=== PATIENT | female | born 1950 | race Caucasian/White ===

== ENCOUNTER 2019-08-26 18:13 | Inpatient (IN) | payer OTHER ==
[~2019-08-26] VITALS: Ht 162.6 cm; Wt 96.2 kg
[~2019-08-26 18:13] MED LIST: ASPIRIN325 PO; BENICAR HCT 201 EACH PO; CHANTIX1 EACH PO; CRANBERRY200 MG PO; FISH OIL 1,001000 M2 PO; LOPRESSOR25 PO; LOVASTATIN 20 M20 MG PO; MOBIC7.5 MG PO; NITROGLYCERIN0.4 MG SUBLING; STOOL SOFTENER100 MG PO; TOPAMAX50 MG PO; VENTOLIN HFA 1818 GM INH
[2019-08-26 21:33] VITALS: BP 137/70
[2019-08-26] MEDS ORDERED: ASA81BEC PO (22:16)
[2019-08-26] MEDS ORDERED: FOLIC ACID0.8 MG PO (22:19)
[2019-08-26] MEDS ORDERED: NEURONTIN100 MG PO (22:20)
[2019-08-26] MEDS ORDERED: ZANAFLEX2 M1 PO (22:21)
[2019-08-27] VITALS (15 sets, daily range): BP systolic 97–135; BP diastolic 44–63
--- NOTE | 2019-08-27 04:19 | NUR ---
PT WAS A DIRECT ADMIT FROM [facility]. PT IS STABLE UPON ARRIVAL TO THE FLOOR VIA EMS. NO SIGN OF DISTRESS NOTED. NURSE PRACTITIONER NOTIFIED UPON ARRIVAL. ADMISSION EDUCATION AND ASSESSMENT COMPLETED. FAMILY AT BEDSIDE. PATIENT DENIES ANY PAIN. PT IS PLACED ON 2.5 L NC OF O2. CONTINUE TO MONITOR PATIENT. PT IS SEEN BY TELEMARKETING MANAGER. DENIES ANY FURTHER NEEDS AT THIS TIME.
[2019-08-27 06:36] LABS: HEMATOCRIT 35.3 % (37.0-47.0); HEMOGLOBIN 11.4 gm/dL (12.0-15.0); MCH 29.4 pg (26.0-34.0); MCHC 32.2 g/dL (28.0-37.0); MCV 91.1 fL (80.0-100.0); RBC 3.88 mil/uL (4.20-5.00); RDW 16.5 % (10.5-14.5); WBC 5.3 thou/uL (4.0-11.0)
[2019-08-27 06:50] LABS: ANION GAP 8 mmol/L (7-16); BUN 21 mg/dL (7-18); CALCIUM 9.5 mg/dL (8.5-10.1); CHLORIDE 102 mmol/L (98-107); CO2 31 mmol/L (21-32); CREATININE 1.2 mg/dL (0.6-1.0); GLUCOSE 120 mg/dL (74-106); POTASSIUM 3.7 mmol/L (3.5-5.1); SODIUM 141 mmol/L (136-145); TROPONIN-I <0.06 ng/mL (<0.06)
--- NOTE | 2019-08-27 14:26 | 2DMMODE ---
[address] [address] 2 D/M-MODE ECHOCARDIOGRAM Name: WASHINGTONMORRIS E Room #: 200-I ADM IN ..#: [id number] Admission: 08/26/19 Attend Phys: Jeri Payne, Discharge: Date of : 46 Report #: [id number] THIS REPORT FOR: //name// APPROVED REPORT Study performed: 08/27/2019 11:52:45 EXAM: Comprehensive 2D, Doppler, and color-flow Echocardiogram Room #: 200 Status: routine BSA: 2.04 HR: 88 bpm Rhythm: NSR Other Information Study Quality: Fair Risk Factors: Cardiac Risk Factors: HTN, Hyperlipidemia, Smoking, SOB Indications Dyspnea Left Ventricle The left ventricle is normal size. Regional wall motion is not well visualized but grossly normal. Mild concentric left ventricular hypertrophy. The left ventricular systolic function is normal. The left ventricular ejection fraction is within the normal range. LVEF is 65%. Right Ventricle The right ventricle is normal size. Atria The left atrium size is normal. Aortic Valve The aortic valve is normal in structure. No aortic regurgitation is present. There is no aortic valvular stenosis. Mitral Valve The mitral valve is normal in structure. There is no mitral valve regurgitation noted. [address] [address] 2 D/M-MODE ECHOCARDIOGRAM Name: MORRIS WASHINGTON Room #: 200-I ADM IN .R.#: [id number] Admission: 08/26/19 Attend Phys: Jeri Payne, Discharge: Date of : 46 Report #: [id number] Pericardium Large circumferential pericardial effusion with echocardiographic and Doppler indices to suggest tamponade physiology. Critical Notification Critical Value: Yes <Conclusion> Limited study The left ventricular systolic function is normal. Regional wall motion is not well visualized but grossly normal. LVEF is 65%. The aortic valve is normal in structure. The mitral valve is normal in structure. Large circumferential pericardial effusion with echocardiographic and Doppler indices to suggest tamponade physiology. <ELECTRONICALLY SIGNED> By: Chris Lopez MD, [facility] 08/27/19 1426 1426 142 Chris Lopez MD, FACC /INF
--- NOTE | 2019-08-27 15:16 | EKG ---
[place] [address] [facility] [place] [address] ELECTROCARDIOGRAM REPORT Name: MORRIS WASHINGTON Room #: 200-I ADM IN M.R.#: [id number] Admission: 08/26/19 Attend Phys: Jeri Payne MD Discharge: Date of : 46 Report #: [id number] THIS REPORT FOR: //name// [facility] Test Date: 2019-08-26 Test Time: 20:21:35 Pat Name: MORRIS WASHINGTON Department: Room: 200 I Gender: F Greens Planter: Debbi GARCIA : 1950 Requested By: Jeri Payne Order Number: [id number] MD: Ton Gonzalez Measurements Intervals [place] Rate: 76 P: 79 IA: 164 QRS: 81 QRSD: 103 T: 53 QT: 409 QTc: 460 Interpretive Statements Sinus rhythm Low voltage with right axis deviation Consider V2 V3 reversal Poor R-wave progression Compared to ECG 11/27/2014 11:37:41 Low QRS voltage now present Electronically Signed On 08-27-2019 15:16:26 MARKETING AUTOMATION SPECIALIST by Ton Gonzalez [email or web address] <ELECTRONICALLY SIGNED> By: Ton Gonzalez MD 08/27/19 1516 20 20 Ton Gonzalez MD /EPI
--- NOTE | 2019-08-27 17:34 | 2DMMODE ---
[facility] [place] [address] 2 D/M-MODE ECHOCARDIOGRAM Name: MORRIS WASHINGTON Ed Room #: 200-I 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 Following pericardiocentesis at 875 mL of serosanguineous fluid was removed no evidence of residual pericardial effusion was present. Patient tolerated procedure well <ELECTRONICALLY SIGNED> By: Ton Gonzalez MD 08/27/19 1734 1734 33 Ton Gonzalez MD /INF
--- NOTE | 2019-08-27 18:02 | NUR ---
Report was received from [place] on CCU and laborer pullet farm RN. Nurse verbalized understanding. PT arrived at 1750 to ICU 247 from laborer pullet farm via bed. PT is alert and oriented. PT reports pain on both sides of her throat. VSS. See assessment for further details. PT is currently sitting upright in bed eating dinner. Call light within reach. Fall precautions in place. Nurse will continue to monitor.
--- NOTE | 2019-08-27 19:30 | NUR ---
Dr. Fierro was contacted in regards to PT's throat pain. PT states she has squeezing pain on bilateral sides of her upper throat that is similar to the pain she experienced with her past MT. Provider verbalized understanding and stated that the PT was given a nitro in produce laborer for the same pain with no relief. He stated he does not believe it is cardiac related. Dr. Fierro ordered throat lozenges with lidocaine to be given to try and provide relief for the PT. PT currently states that the pain has lessened with drinking cold water. Nurse will continue to monitor.
[2019-08-28] VITALS (17 sets, daily range): BP systolic 107–138; BP diastolic 37–77
[2019-08-28 05:27] LABS: HEMATOCRIT 33.2 % (37.0-47.0); HEMOGLOBIN 10.8 gm/dL (12.0-15.0); MCH 29.6 pg (26.0-34.0); MCHC 32.5 g/dL (28.0-37.0); RBC 3.65 mil/uL (4.20-5.00); WBC 5.3 thou/uL (4.0-11.0)
[2019-08-28 05:36] LABS: GLYCOHEMOGLOBIN (HGB A1C) 6.7 % (4.8-5.6)
[2019-08-28 05:38] LABS: CALCIUM 8.3 mg/dL (8.5-10.1); CREATININE 1.2 mg/dL (0.6-1.0); MAGNESIUM 1.9 mg/dL (1.8-2.4); POTASSIUM 4.1 mmol/L (3.5-5.1)
--- NOTE | 2019-08-28 06:00 | NUR ---
PT AWAKE AND ALERT. UP TO COMMODE 8 TIMES TONIGHT. VOIDING CARMEN URINE. 1000 CC THIS SHIFT. LUNGS SOME SCATTED WHEEZING THIS AM. DENIES CHEST PAIN NOR SOA BUT DOES CONT TO HAVE SOME BILAT THROAT PAIN. TYLENOL GIVEN WITH SOME RELIEF. SINUS DIVINA TO SR. SBP [address] OF HEAD EASRLIER SHOWS NO ACUTE PROCESS. A VERY SWEET LITTLE LADY. WILL CONT TO MONITOR
--- NOTE | 2019-08-28 11:26 | CATHLAB ---
[facility] [address] [place] [address] INVASIVE PROCEDURE REPORT Name: MORRIS WASHINGTON Room #: 247-P [facility] IN ..#: [id number] Admission: 08/26/19 Attend Phys: Jeri Payne, Discharge: Date of : 46 Report #: [id number] THIS REPORT FOR: //name// APPROVED REPORT Study performed: 08/27/2019 16:30:57 Patient Details Patient Status: In-Patient Room #: The patient is a 69 year-old female Event Personnel Ton Gonzalez Sales Representative [employer], Evelyn SantoyoR, AUDIO RECORDING ENGINEER Monitor, Arlet Norris RN RN, Maulik Rogers Scrub Procedures Performed Pericardiocentesis Initial [id number] P, supervision of conscious sedation Indication Cardiac tamponade physiology with large circumferential pericardial effusion. Risk Factors Newly diagnosed lung mass Procedure Narrative The patient was brought urgently to the Cardiac Catheterization Laboratory and was prepped and draped in a sterile manner. The was infiltrated with subcutaneous anesthesia. A sheath was inserted into the . Coronary angiography was performed using coronary diagnostic catheters. After informed consent was obtained the patient was brought to the cardiac catheterization laboratory. The subxiphoid and chest region was prepped and draped in usual sterile manner. Utilizing a modified Seldinger technique after instillation with 1% lidocaine . Cardial sac was accessed and visualize confirmed under fluoroscopy. A 5 Chadian sheath was then inserted into the pericardial space through this access. A 5 Chadian pigtail catheter was advanced circumferentially and superiorly into pericardial sac and manual drainage of a serosanguineous nonclotting fluid was obtained. 875 mL were removed. Visualization of extraction of fluid was carried forth with ultrasound guided imaging. Post complete drainage of the pericardial sac patient's blood pressure improved by 15 mmHg and heart rate decreased. Patient complained of throat pain but had been [facility] [place] [address] INVASIVE PROCEDURE REPORT Name: WASHINGTONMORRIS Room #: 247-P [facility] IN ..#: [id number] Admission: 08/26/19 Attend Phys: Jeri Payne, Discharge: Date of : 46 Report #: [id number] coughing significantly for quite some times prior to admission. No EKG changes were identified at this time consistent with acute ischemia. This sheath was removed after the pigtail catheter was removed over a wire and the area massage to disrupt the tract that was created. No drainage was identified and the site was dry. A 4 x 4 was placed over a Band-Aid which was covering the incision site. Patient tolerated procedure well there were no complications. Fluid was sent for cytology and chemistry analysis. Intraoperative Conscious Sedation Sedation start time: 16.40 Case end Time: 17.23 Versed 2 mg Fluoro Time: 1.57 minutes Dose: DAP 2259.70 cGycm2 <ELECTRONICALLY SIGNED> By: Ton Gonzalez MD 08/28/19 1126 1126 Ton Gonzalez MD /INF
[2019-08-28 12:23] LABS: CLARITY CLOUDY; COLOR BROWN; SOURCE PERICARDIAL; TOTAL VOLUME 60 mL
[2019-08-28 12:54] LABS: BF NUCLEATED CELLS 45741; BF RBC 3717902
[2019-08-28 15:02] LABS: BF NEUTROPHILS 8
[2019-08-28 15:03] LABS: BF MACROPHAGE 9
--- NOTE | 2019-08-28 19:58 | NUR ---
PT PROGRESSING TODAY. SR/SB, REWRAPPED HANNA WRAPS TO ALVIN LEGS WITH IMPROVEMENT IN EDEMA, 2L/NC, TOLERATED BEING UP TO TOILET WITH ONE ASSIST WHEN GETTING UP EVERY HOUR TO VOID WITH ONE EXCEPTION WHEN GETTING UP FROM CHAIR TO TOILET IN EARLY AFTERNOON. IT WAS REPORTED, SHE FELT WEAK AND HER GAIT WAS UNSTEADY REQUIRING 2 ASSIST. AMBULATED BACK TO BED WITH 2 ASSIST, WELL TOLERATED. PT HAD SEVERAL VISITORS IN AND OUT, NOW PT WANTING TO REST. TOLERATING DIET WITH GENERALLY POOR APPETITE, ADEQUATE URINE OUTPUT. DR. GALLAGHER AND DR. BRIONES PRESENT TO SEE PT. THEY SPOKE AT LENGTH WITH THE PATIENT AND HER FAMILY.
[2019-08-29 00:01] VITALS: BP 94/29
[2019-08-29 00:02] VITALS: BP 103/35
[2019-08-29 04:00] VITALS: BP 101/42
[2019-08-29 04:32] LABS: CALCIUM 8.3 mg/dL (8.5-10.1); CREATININE 1.2 mg/dL (0.6-1.0); MAGNESIUM 1.8 mg/dL (1.8-2.4); POTASSIUM 3.3 mmol/L (3.5-5.1)
[2019-08-29 04:54] LABS: HEMATOCRIT 29.9 % (37.0-47.0); HEMOGLOBIN 9.9 gm/dL (12.0-15.0); MCV 90.9 fL (80.0-100.0); RBC 3.29 mil/uL (4.20-5.00); RDW 16.4 % (10.5-14.5); WBC 6.5 thou/uL (4.0-11.0)
--- NOTE | 2019-08-29 06:00 | NUR ---
PT HAS SLEPT MOST OF NIGHT. REFUSED BATH AT THIS TIMES JUST WANTS TO STAY IN BED AND SLEEP. UP TO COMMODE WITH 1 ASSIST 500 CC UO THIS SHIFT. LUNGS ESS CLEAR AND DIMINISHED. SINUS DIVINA TO SR. ENDOCRONOLOGIST TO SEE PT THIS AM. WILL CONT TO MONITOR
--- NOTE | 2019-08-29 08:23 | NUR ---
Pt TRANSFERRED TO ICU. WILL NEED NEW PT ORDERS TO CONTINUE PT SERVICES Pt HAS TRANSFERRED TO HIGHER LEVEL OF CARE.
--- NOTE | 2019-08-29 08:45 | NUR ---
Assess due to dx SOA, and lung mass. Hx CABG, DM, + tobacco use. A1C 6.7. Pt reports gradual wt loss past several years ~25 lb which was intentional. Was reducing portions, cutting back on added sugars. Did have recent poor appetite with illness but voiced hunger today and ready to eat breakfast. No questions regarding diet. Low nutrition risk
[2019-08-29 09:20] VITALS: BP 107/70
--- NOTE | 2019-08-29 09:38 | NUR ---
CM ASSESSMENT: CASE OPENED FOR DC PLANNING. CLINICAL INFO REVIEWED. PT ADMITTED WITH SOB, FOUND TO HAVE PERICARIDAL EFFUSION AND REQUIRING PERICARDIALCENTESIS. ADMITTED TO ICU, TRANSFERRED TO CCU THIS AM. MET WITH PT, SPOUSE AND 2 DTRS. PT LIVES IN [place], [place]. PCP IS [facility] MCFARLAND. PT AND SPOUSE LIVE IN [place], PT INDEPENDENT WITH ADLS. PT UTILIZES WALKER AND NOCTURNAL O2 2 L NC, UNABLE TO RECALL NAME OF O2 SUPPLIER AT PRESENT. PT HAS IN KNOWLEDGE MANAGEMENT CONSULTANT SERVICES THRU HER MEDICAID 1 DAY WEEKLY FOR 2-3 HOURS. DTRS FEEL THIS NEEDS TO BE INCREASED AND PROVIDED WITH CONTACT TO MAKE REQUEST PER DTR'S REQUEST. PT HAS LUNG MASS AND PULM FOLLOWING. CURRENTLY ON 2 LITERS NC O2. WILL HAVE P.T. EVAL.
--- NOTE | 2019-08-29 10:28 | 2DMMODE ---
[facility] [address] [place] [address] 2 D/M-MODE ECHOCARDIOGRAM Name: MORRIS WASHINGTON Room #: 217-P [facility] IN ..#: [id number] Admission: 08/26/19 Attend Phys: Jeri Payne, Discharge: Date of : 46 Report #: [id number] THIS REPORT FOR: //name// APPROVED REPORT Study performed: 08/29/2019 09:33:36 EXAM: Limited 2D, Doppler, and color-flow Echocardiogram Patient Location: Bedside Room #: [facility] Status: routine BSA: 2.01 HR: 54 bpm BP: 107/70 mmHg Rhythm: NSR Other Information Study Quality: Good Indications Follow up echo for pericardial effusion. Status post centesis. 2D Dimensions RVDd: 41.15 mm Volumes Left Atrial Volume (Systole) Single Plane 4CH: 43.53 mL Single Plane 2CH: 42.48 mL LA ESV Index: 23.00 mL/m2 Aortic Valve AoV Peak Nader.: 1.39 m/s AO Peak Gr.: 7.70 mmHg LVOT Max P.63 mmHg LVOT Max V: 1.08 m/s Mitral Valve E/A Ratio: 1.5 MV Decel. Time: 197.14 ms MV E Max Nader.: 1.56 m/s MV A Nader.: 1.01 m/s MV PHT: 57.17 ms IVRT: 59.98 ms Pulmonary Vein P Vein S: 0.83 m/s P Vein A: 0.36 m/s P Vein D: 0.95 m/s P Vein A Dur.: 106.1 msec [facility] [address] [place] [address] 2 D/M-MODE ECHOCARDIOGRAM Name: MORRIS WASHINGTON Room #: 217-P ADM IN [facility]#: [id number] Admission: 08/26/19 Attend Phys: Jeri Payne, Discharge: Date of : 46 Report #: [id number] P Vein S/D Ratio: 0.87 Tricuspid Valve TR Peak Nader.: 3.10 m/s RAP Estimate: 5.00 mmHg TR Peak Gr.: 39.00 mmHg PA Pressure: 44.00 mmHg Left Ventricle The left ventricle is normal size. There is normal LV segmental wall motion. Left ventricular systolic function is normal. LVEF is 60-65%. Right Ventricle Right ventricle is at the upper limits of normal. The right ventricular systolic function is normal. Atria The left atrium size is normal. Right atrium is at the upper limits of normal. Aortic Valve The aortic valve is normal in structure. No aortic regurgitation is present. There is no aortic valvular stenosis. Mitral Valve Mitral valve leaflets are mildly thickened. There is mitral annular calcification. There is no mitral valve regurgitation noted. No evidence of mitral valve stenosis. Tricuspid Valve The tricuspid valve is normal in structure. Mild tricuspid regurgitation. Estimated PAP is 45mmHg. Great Vessels The aortic root is normal in size. IVC is normal in size and collapses >50% with inspiration. Pericardium Small pericadial effusion noted. <Conclusion> The left ventricle is normal size. LVEF is 60-65%. Mitral valve leaflets are mildly thickened. There is mitral annular calcification. [facility] [address] [place] [address] 2 D/M-MODE ECHOCARDIOGRAM Name: MORRIS WASHINGTON Ed Room #: 217-P ADM IN ..#: [id number] Admission: 08/26/19 Attend Phys: Jeri Payne, Discharge: Date of : 46 Report #: [id number] The aortic valve is normal in structure. Small pericadial effusion noted. <ELECTRONICALLY SIGNED> By: Ton Gonzalez MD 08/29/19 1027 26 Ton Gonzalez MD /INF
--- NOTE | 2019-08-29 10:58 | NUR ---
ASSUMED CARE @ 0700, ASSESSMENTS AND VSS COMPLETE PER CCU PROTOCOL. REPORT GIVEN TO XOCHILT KELLY @ 0900, PT TRANSFERRED TO CCU WITH THE ASSIST OF AN RN.
[2019-08-29] MEDS ORDERED: LASIX 40 MG TAB40 M2 PO (16:45)
[2019-08-29] MEDS ORDERED: TRADJENTA5 MG PO (16:46)
[2019-08-29] MEDS ORDERED: VENTOLIN HFA INH8 GM INH (17:02)
[2019-08-29] MEDS ORDERED: SPIRIVA INH (17:02)
--- NOTE | 2019-08-29 17:05 | NUR ---
Patient to dc home. She has home oxygen nocturnal but cannot recall name of oxygen company. Called Dr Degroot office and sp with RN. She reports could be [facility] or [facility] (formally [facility] in [place]). Sp with [facility] who reports they have serviced patient oxygen. Rec Sat/Excercise and faxed updated information and script to [facility], rec confirmation of rec of fax. Alerted patiet with need for portable. No further needs.
[2019-08-29 17:12] VITALS: BP 107/70
[2019-08-29 17:18] VITALS: BP 125/50
--- NOTE | 2019-08-29 17:55 | NUR ---
PT ALERT AND ORIENTED. VSS. DENIED HAVING PAIN OR DISCOMFORT. ORDERS GIVEN TO DISCHARGE PT TO HOME. DISCHARGE INSTRUCTIONS GIVEN TO PT. PT VERBERLISED UNDERSTANDING.
--- NOTE | 2019-08-30 10:20 | HC ---
[facility] [place] [address] CONSULTATION Name: MORRIS WASHINGTON Room #: 217-P [facility] IN ..#: [id number] Admission: 08/26/19 Attend Phys: Jeri Payne MD Discharge: 08/29/19 Date of : 46 Report #: [id number] THIS REPORT FOR: //name// CC: Scottie Leonardo DATE OF SERVICE: 08/29/2019 ENDOCRINE CONSULTATION NOTE CONSULTING PHYSICIAN: Dr. Payne. REASON FOR CONSULTATION: Type 2 diabetes mellitus. HISTORY OF PRESENT ILLNESS: This is a 69-year-old female patient whose medical background is significant for multiple medical issues including CAD, status post CABG as well as hypertension, type 2 diabetes mellitus, hyperlipidemia and COPD. The patient was admitted on 08/26/2019 after having presented at [facility] with complaints of shortness of breath. These seemed to have progressed over the course of a week. On her initial assessment at [facility], the patient was found to have a lobulated left upper lung mass and was subsequently referred here for further investigation and management. During this course, the patient was found to have elevated blood glucose indicative of a diagnosis of type 2 diabetes mellitus, which is new to her. Again, the patient has never been officially diagnosed with type 2 diabetes mellitus and as such has never been on active antidiabetic therapy in the past. She has not experienced particular issues with polyuria, polyphagia, polydipsia, or significant body weight changes over the past few months. The patient's background is noted for coronary artery disease, status post CABG as well as congestive heart failure and she is on therapy with aspirin, Benicar HCT, lovastatin, metoprolol and p.r.n. nitroglycerin. REVIEW OF SYSTEMS: CONSTITUTIONAL: Fatigue, tiredness, but no fever, chills or significant weight changes. HEENT: Negative for sinus pain, ear drainage. PULMONARY: Noted for chronic shortness of breath, intermittent cough with an acute worsening over the past week, noted for severe dyspnea and productive cough. CARDIAC: Baseline dyspnea on exertion, lower extremity edema, occasional issues of orthopnea, but no active chest pain. GASTROINTESTINAL: Abdominal distention, abdominal discomfort, nausea, but no vomiting. NEUROLOGY: Occasional lightheadedness, dizziness, but not loss of [facility] [address] [place] [address] CONSULTATION Name: MORRIS WASHINGTON Room #: 217-P [facility] IN [facility].#: [id number] Admission: 08/26/19 Attend Phys: Jeri Payne MD Discharge: 08/29/19 Date of : 46 Report #: [id number] consciousness, seizure activity or severe frequent headaches. SKIN: Negative for rash, ulceration, itching or other major abnormalities. PSYCHIATRIC: Negative for delusions or hallucinations. Otherwise, review of system is noncontributory other than those mentioned in HPI. PAST MEDICAL HISTORY: Noted for; 1. CAD, history of [place], status post angioplasty, status post coronary artery bypass graft. 2. Hypertension. 3. Hyperlipidemia. 4. Chronic obstructive pulmonary disease. 5. Oxygen dependent. 6. Active tobacco use. 7. Hyperglycemia. PAST SURGICAL HISTORY: Left knee replacement, hysterectomy. ALLERGIES: DEMEROL, PENICILLIN. OUTPATIENT MEDICATIONS: Include aspirin 81 mg daily, folic acid 0.8 mg daily, gabapentin 100 mg daily, Zanaflex 2 mg q. 6 hours, Topamax 50 mg daily, Benicar HCT 20/12.5 mg daily, lovastatin 20 mg at bedtime, meloxicam 7.5 mg at bedtime, metoprolol 25 mg at bedtime, docusate sodium 100 mg at bedtime. FAMILY HISTORY: Noncontributory. SOCIAL HISTORY: The patient is an active smoker. Denies use of alcohol. Lives with her . PHYSICAL EXAMINATION: GENERAL: Pleasant female patient who is not in apparent pain or distress. VITAL SIGNS: Blood pressure is 107/70 mmHg, heart rate is 47 beats per minute, respirations 22 per minute, temperature 36.5 degrees. CONSTITUTIONAL: The patient is sitting upright in her bed. Appears relatively comfortable, not in apparent distress. HEENT: Anicteric sclerae. Intact extraocular motions. NECK: Supple, without JVD, carotid bruits or lymphadenopathy. I do not appreciate thyromegaly. CHEST: Noted for limited air entry bilaterally with scattered rales, rhonchi and wheezes. Bibasilar crackles. HEART: Regular rate and rhythm without murmurs or gallops. ABDOMEN: Soft, lax. No guarding, no organomegaly. Active bowel sounds. EXTREMITIES: Lower extremity exam noted for trace ankle edema bilaterally. No skin breaks, ulcerations. Pedal pulses are appreciated. Sensation to light touch is largely intact. NEUROLOGIC: Awake, alert and oriented to time, place and person. The remainder [facility] [address] [place] [address] CONSULTATION Name: MORRIS WASHINGTON Room #: 217-P [facility] IN M.R.#: [id number] Admission: 08/26/19 Attend Phys: Jeri Payne MD Discharge: 08/29/19 Date of : 46 Report #: [id number] of her examination is nonfocal. PSYCHIATRIC: Pleasant, oriented, appropriate and answers my questions fully. Normal mood and affect. LABORATORY RESULTS: Blood glucose on arrival was 119, had a peak of 243 mg/dL and a low of 70 mg/dL. Otherwise, sodium 142, potassium 3.3, chloride 106, CO2 of 32, anion gap 4, BUN 20, creatinine 1.2, glucose 128, calcium 8.3, magnesium 1.8. EGFR 44. Troponin negative. White blood count 6.5, hemoglobin 9.9, hematocrit 29.9, platelets 217. TSH 2.147. Hemoglobin A1c is 6.7%. Her CT scan report from [facility] was noted and is remarkable for left upper lobe or lobulated lung mass. Chest x-ray is noted for cardiomegaly with chronic scarring in the lung bases, atelectasis. CT scan of the head was done here at [facility] and is noted for mild atrophy, but no acute cerebral process. ASSESSMENT AND PLAN: 1. Type 2 diabetes mellitus. While the patient does not have a formal diagnosis, or active treatment of type 2 diabetes mellitus, her current blood glucose values as well as her hemoglobin A1c of 6.7% support this diagnosis. It is quite expected that under circumstances of severe stress illness, pain as well as use of glucocorticoids, that these values might acutely exacerbate to higher levels. The patient was counseled about the pathogenesis of type 2 diabetes mellitus, its implications, and the need to achieve and maintain adequate glycemic control so as to avoid future diabetic complications and she understood that well. During her hospital stay, the patient received minimal insulin dosages as per an insulin sliding scale and these have resulted in significant and quick drops in her blood glucose down to 70 mg/dL indicating a high sensitivity to insulin. That said, our therapeutic choices going forward should bear in mind her cardiac background, the fact that she has a stage 3 chronic kidney disease as well as the need to avoid hypoglycemia. Additionally, the patient expressed an interest in low out of pocket cost medications. In this regard and since she has received a contrasted CT scan studies in the past few days, I would like to start out with Tradjenta 5 mg monotherapy. After she finishes this one month course of Tradjenta and unless she is planned for more contrasted studies or if her kidney function shows further decline, she could be transitioned to a low dose metformin therapy, not to exceed 1000 mg daily given her stage 3 chronic kidney disease. The patient was advised to or about the importance of effective diet measures and that of routine blood glucose monitoring. I would like to follow up with her again in about a month to monitor her progress. 2. Hypertension. The patient's level of blood pressure control is adequate on the current regimen, she is to continue with the same. 3. Renal insufficiency. The patient's current kidney function indices are consistent with chronic kidney disease stage 3, as noted above, therapeutic choices made half to bear this in mind. 4. Hyperlipidemia. The patient is to continue statin therapy for adequate [address] [address] CONSULTATION Name: MORRIS WASHINGTON Ed Room #: 217-P [facility] IN M.R.#: [id number] Admission: 08/26/19 Attend Phys: Jeri Payne MD Discharge: 08/29/19 Date of : 46 Report #: [id number] lipid control. I have reviewed clinical care notes, laboratory data, radiology data both past and present including her file from [facility] for over 35 minutes. I certainly appreciate this consultation by Dr. Payne. <ELECTRONICALLY SIGNED> By: Vladimir Maldonado MD 08/30/19 1020 1153 1520 Vladimir Maldonado MD /nt
--- NOTE | 2019-09-02 14:06 | PATH ---
[facility] [place] [address] PATHOLOGY RPT PROCEDURE Name: MORRIS WASHINGTON Room #: 217-P [facility] IN M.R.#: [id number] Admission: 08/26/19 Date of : 46 Discharge: 08/29/19 Report #: [id number] Path Case #: [id number] Note [facility] Accession Number: [id number] TESTS RESULT FLAG UNITS REF RANGE LAB Clinician Provided Cytology Information No. of containers..01 Other (Miscellaneous) Source: PERICARDIAL FLUID DIAGNOSIS: 02 PERICARDIAL FLUID INCONCLUSIVE. ATYPICAL PAPILLARY GROUPS OF CELLS, SUSPICIOUS FOR ADENOCARCINOMA. COMMENT: THE ATYPICAL CELL GROUPS ARE POSITIVE FOR CK7 AND FOCALLY POSITIVE FOR LG-EP4 AND TTF-1. THE ATYPICAL CELL GROUPS ARE NEGATIVE FOR NAPSIN, CALRETININ, AND WT-1. THE FINDINGS ARE SUSPICIOUS FOR ADENOCARCINOMA. PTS HISTORY OF A LUNG MASS IS NOTED. REVIEW/CONCUR: DR. WRIGHT. Pathologist ICD10: 02 R89.6 Signed out by: 02 Jalen Moura MD, Pathologist NPI- [id number] Performed by: Martita Dupree, It Service Delivery Manager ([facility]) Gross description: 01 15ML, RED BLOODY, CLOUDY /LCS 08/29/2019 1449 Local FLAG LEGEND: L-Low Normal,H-High Normal,LL-Alert Low,HH-Alert High <-Panic Low,>-Panic High,A-Abnormal,AA-Critical Abnormal Performed at: [address] [place] [address] Maik Rodriguez MD, [address] [place] [id number] Adelaide Curiel MD, Specimen Comment: A courtesy copy of this report has been sent to [phone] Specimen Comment: [phone], Specimen Comment: [id number] Specimen Comment: Report sent to ,DR MCFARLAND / DR AYON Performed at: 01 [facility] [address] [place] [address] PATHOLOGY RPT PROCEDURE Name: MORRIS WASHINGTON Room #: 217-P [facility] IN M.R.#: [id number] Admission: 08/26/19 Date of : 46 Discharge: 08/29/19 Report #: [id number] Path Case #: [id number] [address], [place], [place] [id number] MD Maik Rodriguez MD Phone: [phone]
== END 2019-08-29 18:38 | disposition home or self-care (01) | DRG 314 ==
LOC: 2N 18:13 → ICU 19:34 → 2N 19:34 → ICU 08-27 17:52 → 2N 08-29 08:57 → ENTRNSPT 08-29 18:24 → 2N 08-29 18:38
PROVIDERS: Internal Medicine; Internal Medicine Pulmonary Disease; Nurse Practitioner; Nurse Practitioner Acute Care; ADMIT Internal Medicine
PROC: 0W9D3ZZ Drainage of Pericardial Cavity, Percutaneous Approach (ICD-10-PCS; principal; 2019-08-27)
DX: I31.3 Pericardial effusion (noninflammatory) (principal); J96.21 Acute and chronic respiratory failure with hypoxia; J44.1 Chronic obstructive pulmonary disease with (acute) exacerbation; I31.4 Cardiac tamponade; E78.5 Hyperlipidemia, unspecified; Z96.652 Presence of left artificial knee joint; E11.65 Type 2 diabetes mellitus with hyperglycemia; E87.6 Hypokalemia; D64.9 Anemia, unspecified; I25.10 Atherosclerotic heart disease of native coronary artery without angina pectoris; I25.2 Old myocardial infarction; Z95.5 Presence of coronary angioplasty implant and graft; Z99.81 Dependence on supplemental oxygen; Z90.710 Acquired absence of both cervix and uterus; Z88.0 Allergy status to penicillin; Z88.8 Allergy status to other drugs, medicaments and biological substances; Z95.1 Presence of aortocoronary bypass graft; Z79.82 Long term (current) use of aspirin; Z79.899 Other long term (current) drug therapy
CPT/HCPCS: 10078; 10081

== ENCOUNTER → 2019-09-19 | Outpatient (CLI) | payer OTHER ==
[~2019-09-19] MED LIST changes: +ASA81BEC PO; +FOLIC ACID0.8 MG PO; +LASIX 40 MG TAB40 M2 PO; +NEURONTIN100 MG PO; +SPIRIVA INH; +TRADJENTA5 MG PO; +VENTOLIN HFA INH8 GM INH; +ZANAFLEX2 M1 PO
== END ==
LOC: SJCVC 13:08
DX: I11.9 Hypertensive heart disease without heart failure (principal); R94.31 Abnormal electrocardiogram [ECG] [EKG]; I31.3 Pericardial effusion (noninflammatory); I25.10 Atherosclerotic heart disease of native coronary artery without angina pectoris; R91.1 Solitary pulmonary nodule; Z79.82 Long term (current) use of aspirin; Z79.899 Other long term (current) drug therapy; Z90.710 Acquired absence of both cervix and uterus; Z95.5 Presence of coronary angioplasty implant and graft